=== PATIENT | male | born 1950 | race Caucasian/White ===

== ENCOUNTER 2025-06-24 06:54 | Day surgery (SDC) | payer MEDICARE, BC, SELFPAY ==
--- NOTE | 2025-06-24 | PATH_ITS ---
[facility] Accession Number: [id number] No. of containers..03 Tissue . 01 Material submitted: . PART A: colon - POLYP @ 115 TRANSVERSE PART B: colon - COLON, ASCENDING POLYP PART C: rectum - RECTAL POLYP . 01 Diagnosis: A. TRANSVERSE COLON POLYP AT 115 CM: Tubular adenoma. . B. ASCENDING COLON POLYP: Tubular adenoma. . C. RECTAL POLYP: Hyperplastic polyp. MRV 07/04/2025 1224 Local . 01 Electronically signed: . Javi Traore MD, PhD, Pathologist NPI- [id number] . 01 Gross description: . Received are three formalin-filled containers each labeled with the patient's name. . A. In a container labeled polyp at 115. The specimen consists of three fragments of rodriguez, soft tissue which range in size from 0.7 x 0.5 x 0.5 cm to 1.5 x 0.5 x 0.5 cm. The specimen is totally submitted in cassette A1. B. In a container labeled polyp at ascending. The specimen consists of two fragments of rodriguez, soft tissue which range in size from 0.5 x 0.4 x 0.4 cm to 0.6 x 0.5 x 0.4 cm. All fragments are totally submitted in cassette B1. C. In a container labeled rectal polyp. The specimen consists of two fragments of rodriguez, soft tissue which range in size from 0.3 x 0.2 x 0.2 cm to 0.5 x 0.4 x 0.3 cm. All fragments are totally submitted in cassette C1. ([id number]) /DIEGO 06/30/2025 2340 Local . 01 Pathologist provided ICD-10: D12.3, D12.2, K62.1 . 01 CPT . 422312, [id number], 477156 Specimen Comment: A courtesy copy of this report has been sent to [phone] Performed at: [address] [id number] MD Lawrence Moya MD Phone: [phone]
[2025-06-24 07:20] VITALS: PULSE 61; RESP 14; TEMP 36.8; O2SAT 97
--- NOTE | 2025-06-24 07:29 | PM.PREOP ---
Pre-operative Note COVID-19 COVID-19 status: Not tested Interval Note History & Physical reviewed/Exam performed by Physician: Yes Changes to H&P: No ASA Class (for procedural sedation): III
[2025-06-24] MEDS: LACTATED RINGERS 1,000 ML 42 ML IV (07:31)
[2025-06-24 07:32] VITALS: BP 187/90
[2025-06-24 08:34] VITALS: BP 176/91; PULSE 84; RESP 21; TEMP 36.4; O2SAT 99
--- NOTE | 2025-06-24 08:35 | P.OP.EGD&C_ITS ---
Operative Date/Time/Diagnoses Date of procedure: 06/24/25 Time of procedure: 08:35 Pre-op diagnosis: Anemia Post-op diagnosis: same Procedure & Clinicians Study performed: EGD and colonoscopy Same procedure(s) as scheduled: Yes Surgeon: Thomas Tinoco Anesthesia Type: MAC +/- Procedure Notes Procedure in detail: Surgeon: Thomas Tinoco MD Anesthesia: [facility] Procedure in detail: A timeout was performed. A bite blocked was placed and monitors were attached to the patient. The patient was positioned in the left lateral decubitus position. Sedation was administered. Once the patient was sedated the endoscope was inserted through the bite block and passed through the esophagus and stomach and into the duodenum. No abnormalities were seen. We then withdrew the scope into the stomach. No abnormalities were seen in the stomach. The endoscope was retroflexed and no hiatal hernia was seen. The endoscope was straightned and withdrawn into the esophagus. No abnormalities were seen in the esophagus. EGD findings: Grossly normal EGD Next we repositioned the patient for a colonoscopy. A digital rectal exam was performed and was normal. The colonoscope was inserted and advanced to the cecum with some difficulty. We had to reposition the patient and apply abdominal pressure to reach the cecum. The appendiceal orifice was identified and photographed. The scope was slowly withdrawn over greater than 6 minutes. There was a 7 mm polyp in the ascending colon removed with a cold snare. There was a 1 cm polyp in the distal transverse colon at 115 cm removed with a cold snare. The scope was retroflexed in the rectum and a 3 mm polyp was noted in the distal rectum which was removed with a cold snare. Colonoscopy findings: 7 mm polyp in the ascending colon, 1 cm polyp in the distal transverse colon at 115 cm and 3 mm polyp in the rectum. Total procedural EBL: 5 mL Scope withdrawal time: 11 minutes Sedation minutes: 38 minutes Estimated Blood Loss: 5 Complications: none Post-procedure Disposition: PACU
[2025-06-24 08:40] VITALS: BP 142/71; PULSE 63; RESP 25; O2SAT 98
[2025-06-24 08:46] VITALS: BP 150/72; PULSE 65; RESP 20; TEMP 36.6; O2SAT 99
[2025-06-24 08:47] VITALS: BP 154/74; PULSE 64; RESP 18; TEMP 36.2; O2SAT 98
== END 2025-06-24 09:12 | disposition home or self-care (01) ==
PROVIDERS: PCP Family Medicine; Referring Provider Surgery; Visit Provider Surgery
PROC: 0DJ08ZZ Inspection of Upper Intestinal Tract, Via Natural or Artificial Opening Endoscopic (ICD-10-PCS; CPT 45385; principal; 2025-06-24 08:00)
PROC: 0DJD8ZZ Inspection of Lower Intestinal Tract, Via Natural or Artificial Opening Endoscopic (ICD-10-PCS; CPT 45378; 2025-06-24 08:00)
DX: D64.9 Anemia, unspecified (principal); D12.2 Benign neoplasm of ascending colon; D12.3 Benign neoplasm of transverse colon; K62.1 Rectal polyp; I48.91 Unspecified atrial fibrillation; I10 Essential (primary) hypertension; E78.5 Hyperlipidemia, unspecified; Z79.01 Long term (current) use of anticoagulants; Z86.73 Personal history of transient ischemic attack (TIA), and cerebral infarction without residual deficits; Z95.0 Presence of cardiac pacemaker; Z87.898 Personal history of other specified conditions
CPT/HCPCS: 45385; 43235; J2704; J7120